=== PATIENT | female | born 1945 | race Caucasian/White ===

== ENCOUNTER 2017-07-27 20:55 | Emergency (ER) | payer MEDICARE, BC ==
[~2017-07-27] VITALS: Ht 165.1 cm; Wt 93.0 kg
[2017-07-27 22:03] VITALS: BP 128/99
== END 2017-07-27 22:15 | disposition home or self-care (01) ==
LOC: ER 21:02
DX: L02.612 Cutaneous abscess of left foot (principal); I10 Essential (primary) hypertension; M41.9 Scoliosis, unspecified; M54.32 Sciatica, left side
CPT/HCPCS: 87070-TC; A4606; A6402; A6403; J3490; Z7610

== ENCOUNTER 2018-02-23 03:55 | Emergency (ER) | payer MEDICARE, BC ==
[~2018-02-23] VITALS: Ht 162.6 cm; Wt 90.7 kg
[2018-02-23 04:10] VITALS: BP 147/102
[2018-02-23] MEDS ORDERED: AMOX/CLAVULANATE 875 MG TABLET ONE (04:18)
[2018-02-23] MEDS ORDERED: AMOX/CLAVULANATE 875 MG TABLET PO ONE (04:30)
== END 2018-02-23 04:30 | disposition home or self-care (01) ==
LOC: ER 03:56
DX: K04.7 Periapical abscess without sinus (principal); I10 Essential (primary) hypertension; M41.9 Scoliosis, unspecified; Z60.2 Problems related to living alone
CPT/HCPCS: A4606; Z7610

== ENCOUNTER 2019-09-22 12:21 | Inpatient (IN) | payer MEDICARE, BC ==
[~2019-09-22] VITALS: Ht 160 cm; Wt 90.7 kg
--- NOTE | 2019-09-22 12:24 | NUR ---
"[id number], FROM HOME, PT STATES "I FEEL LIKE IM IN A TUNNEL", DENIES ANY PAIN" pt aaox4, -sob, nad noted, vss, pending md rosen
[2019-09-22 12:48] LABS: BASOPHILS # (AUTO) 0.1 /CMM (0.0-0.2); BASOPHILS % (AUTO) 0.7 % (0.0-2.0); EOSINOPHILS % (AUTO) 0.9 % (0.0-6.0); HEMATOCRIT 44 % (33-45); HEMOGLOBIN 14.8 g/dL (11.5-14.8); LYMPHOCYTES # (AUTO) 0.9 /CMM (0.8-4.8); LYMPHOCYTES % (AUTO) 11.1 % (20.0-44.0); MEAN CORPUSCULAR HGB CONC 34 g/dl (31.0-36.0); MEAN CORPUSCULAR VOLUME 92 fL (82-100); MONOCYTES # (AUTO) 0.4 /CMM (0.1-1.30); MONOCYTES % (AUTO) 5.1 % (2.0-12.0); NEUTROPHILS # (AUTO) 6.9 /CMM (1.8-8.9); NEUTROPHILS % (AUTO) 82.2 % (43.0-81.0); PLATELET COUNT (AUTO) 181 /CMM (150-450); RED BLOOD CELL COUNT(AUTO) 4.78 MIL/uL (4.0-5.2); WHITE BLOOD COUNT (AUTO) 8.4 K/uL (4.3-11.0)
[2019-09-22 12:56] LABS: CALCIUM, SERUM 9.4 mg/dL (8.5-10.1); CARBON DIOXIDE 23 mmol/L (21-32); CHLORIDE 106 mmol/L (98-107); CREATININE 1.2 mg/dL (0.6-1.3); GLUCOSE 113 mg/dL (74-106); SODIUM SERUM 140 mmol/L (136-145); UREA NITROGEN, BLOOD 29 mg/dL (7-18)
[2019-09-22] MEDS ORDERED: IV NS 0.9% 500 ML BAG IV ONE (13:00)
[2019-09-22 13:01] LABS: ALANINE AMINOTRANSFERASE 15 U/L (12-78); ALBUMIN 3.9 g/dL (3.4-5.0); ALCOHOL, BLOOD < 3 mg/dL (0-0); ALKALINE PHOSPHATASE 39 U/L (46-116); ASPARTATE AMINOTRANSFERASE 17 U/L (15-37); BILIRUBIN,DIRECT 0.1 mg/dL (0.0-0.2); BILIRUBIN,TOTAL 0.7 mg/dL (0.2-1.0); TOTAL PROTEIN, SERUM 7.1 g/dL (6.4-8.2)
[2019-09-22 13:02] LABS: ACETAMINOPHEN 0 ug/ml (10-30); SALICYLATE 0.4 mg/dL (2.8-20.0)
[2019-09-22 13:25] LABS: APPEARANCE,URINE Slightly Cloudy (CLEAR); BILIRUBIN,URINE SMALL (NEGATIVE); BLOOD, URINE Negative Ery/uL (NEGATIVE); COLOR,URINE Yellow (YELLOW); KETONES,URINE Trace (NEGATIVE); LEUKOCYTE ESTERASE ,URINE Small (NEGATIVE); NITRITE, URINE Negative (NEGATIVE); PH,URINE 5.5 (5.0-8.0); PROTEIN,URINE 100 mg/dl (NEGATIVE); UGLUCOSE Negative (NEGATIVE); UROBILINOGEN,URINE 0.2 EU/dL (0.2)
--- NOTE | 2019-09-22 13:47 | NUR ---
CALLED NURSING SUP FOR TELE BED.
[2019-09-22 13:48] LABS: BACTERIA,URINE Few /HPF (None Seen); SQUAMOUS EPITHELIAL CELL,UR Few /HPF (None Seen); WBC,URINE 20-40 /HPF (0-3)
[2019-09-22] MEDS ORDERED: MELO-107 PO (13:49)
[2019-09-22] MEDS ORDERED: TIZA4TAB5 PO (13:49)
[2019-09-22] MEDS ORDERED: OXYC-454 PO (13:49)
[2019-09-22] MEDS ORDERED: VALS160T29 PO (13:49)
[2019-09-22] MEDS ORDERED: CEFTRIAXONE 1GM BAG (ER ONLY) 1 GM/50 ML PIGGYBACK IV ONE (14:00)
[2019-09-22] MEDS ORDERED: CEFTRIAXONE 1GM BAG (ER ONLY) 50 ML IV ONE (14:03)
[2019-09-22] MEDS ORDERED: MAG HYDROX/AL HYDROX/SIMETH 30 ML UDC PO PRN (14:30)
[2019-09-22] MEDS ORDERED: ONDANSETRON HCL/PF 4 MG/2 ML VIAL IVP PRN (14:30)
[2019-09-22] MEDS ORDERED: Z GUARD REMEDY 2 OZ OINT TP PRN (14:30)
[2019-09-22] MEDS ORDERED: ACETAMINOPHEN 325 MG TABLET PO PRN (14:30)
[2019-09-22] MEDS ORDERED: TIZANIDINE HCL 4 MG TABLET PO PRN (14:30)
[2019-09-22] MEDS ORDERED: ZOLPIDEM TARTRATE 5 MG TABLET PO PRN (14:30)
[2019-09-22] MEDS ORDERED: HYDROCODONE/APAP 5/325MG 1 EACH TABLET PO PRN (14:30)
[2019-09-22] MEDS ORDERED: MAGNESIUM HYDROXIDE 30 ML UDC PO PRN (14:30)
[2019-09-22] MEDS ORDERED: oxyCODONE/APAP (5/325 MG) 1 UDTAB TABLET PO PRN (15:00)
--- NOTE | 2019-09-22 15:05 | NUR ---
REPORT GIVEN TO JERED SERRANO FOR PIPE; PT TRANSPORTED TO 3RD FLOOR VIA [facility]
--- NOTE | 2019-09-22 15:10 | NUR ---
RN ADMITTING NOTES ADMITTED A 74 YEARS OLD, FEMALE TO UNIT VIA WHEELCHAIR ACCOMPANIED BY HOSPITAL STAFF, A/O X4. ABLE TO MAKE NEEDS KNOWN. NO COMPLAIN OF PAIN OR DISCOMFORT AT THIS TIME. PATIENT ORIENTED TO UNIT, ROOM AND STAFF. ON RA, BREATHING EVEN AND UNLABORED. V/S TAKEN AND RECORDED. PHYSICAL ASSESSMENT DONE. PHOTOS OF SKIN ISSUES FILED ON GERRY. LUNGS CLEAR ON AUSCULTATION. PATIENT WITH IV ACCESS ON LEFT HAND #20, IVF TO BE STARTED. SAFETY MEASURES INITIATED. BED PLACED IN LOW LOCKED POSITION WITH SIDE RAILS UP X2. CALL LIGHT PLACED WITHIN EASY REACH OF PATIENT. ALL ORDERS IN AND CARRIED OUT. WILL CONTINUE TO MONITOR.
[2019-09-22] MEDS: IV NS 0.9% 1,000 ML IV SCH (15:36)
--- NOTE | 2019-09-22 18:48 | NUR ---
MS RN CLOSING NOTES PATIENT IN BED RESTING COMFORTABLY IN MODERATE HIGH BACK REST. A/O X4. FRIEND AT BEDSIDE. ON RA, TOLERATING WELL. NO COMPLAIN OF PAIN OR DISCOMFORT. IV FLUIDS ON LEFT HAND # 20 WITH NS RUNNING @75ML/HR. PATENT AND INTACT. SAFETY MEASURES IN PLACE, BED IN LOW LOCKED POSITION WITH SIDE RAILS UP X2. CALL LIGHT WITHIN REACH. WILL ENDORSE TO AIR TUCKER NURSE FOR PIPE.
--- NOTE | 2019-09-22 19:05 | NUR ---
WEB APPLICATIONS ARCHITECT NOTES RECEIVED ON BED A/O X4,BREATHING EASY,NO SOB,ABLE TO MAKE NEEDS KNOWN.AMBULATES TO THE RESTROOM.IVF NS AT 75ML/HR RATE IN PROGRESS VIA IV PUMP ON LEFT HAND,SITE PATENT.DVT PUMP ON STANDBY,PATIENT WORRIED IF HE HAD IT ON,AND SHE ALWAYS GO TO THE RESTROOM.SHE WAS ADVISED THAT SHE CAN CALL ANYTIME,IF SHE NEEDS TO GET UP.NO COMPLAINTS AT THE MOMENT,CALL LIGHT IN REACH,NEEDS ANTICIPATED.
[2019-09-22 20:00] VITALS: BP 154/89
[2019-09-22 20:25] VITALS: BP 154/89
--- NOTE | 2019-09-23 03:15 | NUR ---
MS RN NOTES AWAKE,HAD BOWEL MOVEMENT IN THE TOILET
[2019-09-23] MEDS: IV NS 0.9% 1,000 ML IV SCH ×2 (03:54→21:50)
--- NOTE | 2019-09-23 06:24 | NUR ---
MS RN NOTES FAIRLY RESTED AT NIGHT,DENIES DISCOMFORTS THRU OUT SHIFT,AMBULATE WITH STEADY TO THE BATHROOM.IVF INFUSING,REMAINS PATENT ON SITE.STILL REFUSED DVT PUMP.IN NO ACUTE DISTRESS,CALL LIGHT IN REACH,NEEDS ATTENDED.
[2019-09-23 06:36] LABS: BASOPHILS % (AUTO) 0.7 % (0.0-2.0); EOSINOPHILS % (AUTO) 2.4 % (0.0-6.0); HEMATOCRIT 40 % (33-45); HEMOGLOBIN 13.4 g/dL (11.5-14.8); LYMPHOCYTES # (AUTO) 1.3 /CMM (0.8-4.8); LYMPHOCYTES % (AUTO) 22.5 % (20.0-44.0); MEAN CORPUSCULAR HGB CONC 34 g/dl (31.0-36.0); MEAN CORPUSCULAR VOLUME 91 fL (82-100); MONOCYTES # (AUTO) 0.4 /CMM (0.1-1.30); NEUTROPHILS % (AUTO) 67.4 % (43.0-81.0); PLATELET COUNT (AUTO) 175 /CMM (150-450); RED BLOOD CELL COUNT(AUTO) 4.33 MIL/uL (4.0-5.2); WHITE BLOOD COUNT (AUTO) 5.9 K/uL (4.3-11.0)
[2019-09-23 06:37] LABS: CALCIUM, SERUM 8.3 mg/dL (8.5-10.1); CREATININE 0.9 mg/dL (0.6-1.3); MAGNESIUM 2.2 mg/dL (1.8-2.4); PHOSPHORUS 2.8 mg/dL (2.5-4.9)
[2019-09-23 08:00] VITALS: BP_SYST 180; BP_SYST 187; BP_DIAS 100; BP_DIAS 103
--- NOTE | 2019-09-23 08:00 | NUR ---
MS RN AM NOTES RECEIVED ON BED A/O X4,BREATHING EASY,NO SOB,ABLE TO MAKE NEEDS KNOWN.AMBULATES TO THE RESTROOM.IVF NS AT 75ML/HR RATE IN PROGRESS VIA IV PUMP ON LEFT HAND,SITE PATENT.DVT PUMP ON STANDBY,NO COMPLAINTS AT THE MOMENT,CALL LIGHT IN REACH
[2019-09-23] MEDS: VALSARTAN 80 MG TABLET PO SCH (08:55)
[2019-09-23] MEDS ORDERED: MELOXICAM 7.5 MG TABLET PO PRN (09:00)
[2019-09-23 11:00] VITALS: BP 170/80
[2019-09-23] MEDS: CEFTRIAXONE 1 G in IV D5W 50 ML IV SCH (13:47)
[2019-09-23 16:00] VITALS: BP 171/94
[2019-09-23] MEDS: CARVEDILOL 12.5 MG TABLET PO SCH ×2 (16:59→20:56)
--- NOTE | 2019-09-23 19:22 | NUR ---
PT GOES TO THE TOILET OFTEN DELAYING THE INFUSION OF HER IVF NS.DENIES PAIN OR DISTRESS.PT ALWAYS BUSY TALKING ON THE PHONE AND RECEIVING VISITORS.CALL LIGHT PLACED WITHIN REACH.
--- NOTE | 2019-09-23 19:29 | NUR ---
MS RN NOTES RECEIVED ON BED,A/O X4,NO SOB,SALINE LOCK LEFT HAND INTACT AND PATENT.DENIES PAIN,OPERATIONS CLERK BEDSIDE DOING ECHO,AWAITING FOR RESULT.CALL LIGHT IN REACH,NEEDS ANTICIPATED.
[2019-09-23 20:00] VITALS: BP_SYST 147; BP_DIAS 84; BP_DIAS 87
[2019-09-24 06:21] LABS: BASOPHILS % (AUTO) 0.7 % (0.0-2.0); EOSINOPHILS % (AUTO) 3.4 % (0.0-6.0); HEMATOCRIT 40 % (33-45); LYMPHOCYTES # (AUTO) 1.3 /CMM (0.8-4.8); LYMPHOCYTES % (AUTO) 18.8 % (20.0-44.0); MEAN CORPUSCULAR HGB CONC 35 g/dl (31.0-36.0); MEAN CORPUSCULAR VOLUME 91 fL (82-100); MONOCYTES # (AUTO) 0.5 /CMM (0.1-1.30); MONOCYTES % (AUTO) 7.5 % (2.0-12.0); NEUTROPHILS # (AUTO) 4.9 /CMM (1.8-8.9); NEUTROPHILS % (AUTO) 69.6 % (43.0-81.0); PLATELET COUNT (AUTO) 177 /CMM (150-450); RED BLOOD CELL COUNT(AUTO) 4.44 MIL/uL (4.0-5.2); WHITE BLOOD COUNT (AUTO) 7.1 K/uL (4.3-11.0)
[2019-09-24 06:51] LABS: CALCIUM, SERUM 8.5 mg/dL (8.5-10.1); CARBON DIOXIDE 23 mmol/L (21-32); CHLORIDE 109 mmol/L (98-107); CREATININE 0.7 mg/dL (0.6-1.3); GLUCOSE 104 mg/dL (74-106); MAGNESIUM 2.3 mg/dL (1.8-2.4); PHOSPHORUS 2.7 mg/dL (2.5-4.9); SODIUM SERUM 141 mmol/L (136-145); UREA NITROGEN, BLOOD 14 mg/dL (7-18)
--- NOTE | 2019-09-24 06:55 | NUR ---
MS RN NOTES NO SIGNIFICANT CHANGE IN STATUS.ECHO 60-70-% EF,DENIES CHEST DISCOMFORTS.USE RESTROOM MORE OFTEN LAST NIGHT.IN NO ACUTE DISTRESS.WILL ENDORSE TO DAY NURSE FOR PIPE.
[2019-09-24 08:00] VITALS: BP 180/98
--- NOTE | 2019-09-24 08:00 | NUR ---
MS RN AM NOTES RECEIVED ON BED A/O X4,BREATHING EASY,NO SOB,ABLE TO MAKE NEEDS KNOWN.AMBULATES TO THE RESTROOM.IVF NS AT 75ML/HR RATE INFUSING WELL VIA IV PUMP ON LEFT HAND,SITE PATENT.REFUSED DVT PUMP TO BE PLACED,NO COMPLAINTS AT THE MOMENT,CALL LIGHT WITHIN REACH
[2019-09-24] MEDS ORDERED: AMLODIPINE BESYLATE 5 MG TABLET PO SCH ×2 (09:00)
[2019-09-24] MEDS ORDERED: CARVEDILOL 12.5 MG TABLET PO SCH (09:00)
[2019-09-24] MEDS: VALSARTAN 80 MG TABLET PO SCH (09:42)
[2019-09-24] MEDS ORDERED: CT SWABBABLE VALVE TRANS SET 1 EA INFUS.SET MC ONE (10:47)
[2019-09-24] MEDS ORDERED: IV NS 0.9% 250 ML IV ONE (10:47)
[2019-09-24] MEDS ORDERED: IOHEXOL-350 100 ML VIAL IV ONE (10:47)
[2019-09-24 12:00] VITALS: BP 150/94
[2019-09-24] MEDS: CEFTRIAXONE 1 G in IV D5W 50 ML IV SCH (13:46)
[2019-09-24] MEDS ORDERED: CEPH-570 PO (15:44)
[2019-09-24] MEDS ORDERED: CARV12.52 PO (15:44)
[2019-09-24] MEDS ORDERED: AMLO5TAB9 PO (15:44)
[2019-09-24 16:00] VITALS: BP 143/88
--- NOTE | 2019-09-24 18:00 | NUR ---
DISCHARGED PT HOME WITH STABLE V/S VIA PRIVATE CAR ACCOMPANIED BY HER BEST FRIEND,CHRIS.IV H/L TO TL HAND AND LT AC REMOVED WITH NO BLEEDING NOTED.DENYING ANY PAIN OR DISTRESS.DISCHARGE INSTRUCTIONS AND PRESCRIPTIONS GIVEN TO THE PT.
== END 2019-09-24 18:00 | disposition home or self-care (01) | DRG 689 ==
LOC: ER 12:22 → TELE 14:34 → MED 15:33
PROVIDERS: ADMIT Family Medicine; ATTEND Hospitalist
DX: N39.0 Urinary tract infection, site not specified (principal); N17.0 Acute kidney failure with tubular necrosis; R73.9 Hyperglycemia, unspecified; I10 Essential (primary) hypertension; E78.5 Hyperlipidemia, unspecified; M54.42 Lumbago with sciatica, left side; Z87.891 Personal history of nicotine dependence; Z87.440 Personal history of urinary (tract) infections; Z79.899 Other long term (current) drug therapy; Z82.3 Family history of stroke; E66.9 Obesity, unspecified; G89.29 Other chronic pain; Z68.35 Body mass index [BMI] 35.0-35.9, adult; I67.2 Cerebral atherosclerosis; M41.9 Scoliosis, unspecified; H93.19 Tinnitus, unspecified ear; I70.1 Atherosclerosis of renal artery
CPT/HCPCS: 36415; 70450-TC; 74175-TC; 80048-TC; 80061-TC; 80076-TC; 80305; 81000-TC; 83605-TC; 83735-TC; 84100-TC; 84484-TC; 85025-TC; 87040-TC; 87081-TC; 93307-TC; 93880-TC; G0378; G0480; J0696; J7030; J7040; J7050; J7060; Q9967

== ENCOUNTER 2020-03-28 11:39 | Emergency (ER) | payer MEDICARE, BC ==
[~2020-03-28] VITALS: Ht 165.1 cm; Wt 98.9 kg
[~2020-03-28 11:39] MED LIST: AMLO5TAB9 PO; CARV12.52 PO; CEPH-570 PO; MELO-107 PO; OXYC-454 PO; TIZA4TAB5 PO; VALS160T29 PO
--- NOTE | 2020-03-28 12:10 | NUR ---
L HAND, L HIP AND L FOOT PAIN S/P GLF AT HOME. DENIES HEAD INJURY. -KO. PATIENT A/OX4, AMBULATORY WITH STEADY GAIT. NEEDS ATTENDED. KEPT COMFORTABLE.
[2020-03-28 13:35] VITALS: BP 110/72
--- NOTE | 2020-03-28 13:35 | NUR ---
Ambulatory with steady gait. Patient discharged to home in stable condition. Written and verbal after care instructions given. Patient verbalizes understanding of instruction.
== END 2020-03-28 13:36 | disposition home or self-care (01) ==
LOC: ER 11:46
DX: S60.222A Contusion of left hand, initial encounter (principal); S90.32XA Contusion of left foot, initial encounter; S70.02XA Contusion of left hip, initial encounter; I10 Essential (primary) hypertension; Z60.2 Problems related to living alone; Z79.899 Other long term (current) drug therapy; W18.39XA Other fall on same level, initial encounter; Y93.89 Activity, other specified; Y92.89 Other specified places as the place of occurrence of the external cause; Y99.8 Other external cause status
CPT/HCPCS: 71045-TC; 73130-TC; 73502; 73630-TC